=== PATIENT | male | born 1955 | race Caucasian/White ===

== ENCOUNTER 2019-12-13 15:56 | Inpatient (IN) | payer OTHER ==
[~2019-12-13] VITALS: Ht 180.3 cm; Wt 101.5 kg
[2019-12-13 18:10] LABS: BASO % 0.5 % (0.0-2.0); EOS # 0.4 (0.0-0.7); EOS % 4.7 % (0-4.0); GRAN # 5.9 (1.4-6.5); GRAN % 77.2 % (42.2-75.2); LYMPH # 0.3 (1.2-3.4); LYMPH % 3.9 % (20.0-51.0); MEAN CELL VOLUME 93 fl (80.0-100.0); MEAN CORPUSCULAR HGB CONC 33 g/dl (33.0-37.0); MEAN PLATELET VOLUME 9.5 fl (7.4-10.4); MONO % 13.2 % (1.7-9.3); PLATELET COUNT 247 K/mm3 (130-400); REDCELL DISTRIBUTION WIDTH-CV 19.2 % (11.5-14.5)
[2019-12-13 18:11] LABS: HEMATOCRIT 23.3 % (42.0-52.0); HEMOGLOBIN 7.6 g/dl (13.5-18.0); MEAN CORPUSCULAR HEMOGLOBIN 30 pg (27.0-31.0)
[2019-12-13 18:15] LABS: INR 1.3 (0.8-3.0); PROTHROMBIN TIME 14.2 SECONDS (9.7-12.8)
[2019-12-13 18:20] LABS: ALBUMIN 3.3 gm/dL (3.5-5.0); BILIRUBIN,TOTAL 0.7 mg/dL (0.0-1.0); CREATININE, serum 12.91 (0.66-1.25); POTASSIUM 4.5 mmol/L (3.4-5.0); TOTAL PROTEIN 6.4 gm/dL (6.4-8.2)
[2019-12-13 18:25] VITALS: BP 158/85; PULSE 103; TEMP 99.5
[2019-12-13 18:40] LABS: PHOSPHOROUS 10.7 mg/dL (2.5-4.5)
[2019-12-13 18:41] LABS: CALCIUM 5.2 mg/dL (8.4-10.2)
[2019-12-13 20:42] VITALS: BP 148/81; PULSE 92; TEMP 98.3
--- NOTE | 2019-12-13 21:49 | NUR ---
Radha carpenter DC'd, 10cc water removed. pt tolerated well, states relief. needs met at this time. call light within reach.
--- NOTE | 2019-12-13 22:00 | NUR ---
Received report from BRITTANY Fowler. A/O x4. Denies any pain or discomfort at this time. Garcia cather intact draining tea colored urine. Garcia will be DC'd per orders. Tele monitor in place. PT able to lift and hold BUE and BLE but seems weak. PT to call for needs. Meds adminisetered. Made pt comfortable in bed. Per Dr Ann, LA restriction for future fistula placement. Restriction band placed on LA. INT to lt shoulder and RFA intact, flushed, dressing CDI. Will monitor pt. Pt understands procedure in AM and to be be NPO at midnight. Call light within reach. Covid came back negative.
[2019-12-13 23:13] VITALS: BP 146/54; PULSE 92; TEMP 98.1
[2019-12-14] VITALS (11 sets, daily range): BP systolic 139–155; BP diastolic 62–85; PULSE 86–98; TEMP 97.4–98.9
--- NOTE | 2019-12-14 07:03 | NUR ---
Report given to BRITTANY Moon.
--- NOTE | 2019-12-14 07:30 | NUR ---
Patient is being taken down to laboratory monitor for tunneled dialysis catheter placement
--- NOTE | 2019-12-14 08:08 | NUR ---
SEE MEREGE FOR ALL MEDICATION ADMIN. TIMES AND INTRA AND POST SEDATION ASSESSMENTS
--- NOTE | 2019-12-14 08:50 | NUR ---
Patient arrived back to room 356 from oil laboratory analyst, TDC placed to right jugular/ dressing C/D/I, he is drowsy but easy to arouse, vital signs stable, US/vascular here to do veing mapping for fistula
--- NOTE | 2019-12-14 09:00 | NUR ---
Assessment completed, alert/oriented but drowsy after receiving sedation for dialysis cath placement, he is having a left arm vein mapping done now for future fistula placement, he will go do dialysis after, heart RRR, vitals signs stable, denies pain or discomfort, lungs are diminished with some expiratory wheezing noted, o2 sats stable on room air
--- NOTE | 2019-12-14 10:00 | NUR ---
Transferring patient to dialysis at this time
[2019-12-14 10:49] LABS: BASO # 0.1 (0.0-0.2); BASO % 0.9 % (0.0-2.0); EOS # 0.4 (0.0-0.7); EOS % 6.2 % (0-4.0); GRAN # 4.9 (1.4-6.5); GRAN % 76.7 % (42.2-75.2); HEMOGLOBIN 7.7 g/dl (13.5-18.0); LYMPH # 0.2 (1.2-3.4); LYMPH % 3.7 % (20.0-51.0); MEAN CELL VOLUME 94 fl (80.0-100.0); MEAN CORPUSCULAR HEMOGLOBIN 30 pg (27.0-31.0); MEAN CORPUSCULAR HGB CONC 32 g/dl (33.0-37.0); MEAN PLATELET VOLUME 9.7 fl (7.4-10.4); MONO # 0.8 (0.1-0.6); MONO % 11.9 % (1.7-9.3); PLATELET COUNT 266 K/mm3 (130-400); RED BLOOD COUNT 2.56 M/mm3 (4.20-5.60); REDCELL DISTRIBUTION WIDTH-CV 19.5 % (11.5-14.5)
[2019-12-14 11:19] LABS: IRON,SERUM 25 ug/dL (35-150)
[2019-12-14 11:22] LABS: ALBUMIN 3.1 gm/dL (3.5-5.0); POTASSIUM 4.4 mmol/L (3.4-5.0)
[2019-12-14 11:28] LABS: CREATININE, serum 14.39 (0.66-1.25)
[2019-12-14 11:41] LABS: PHOSPHOROUS 12.2 mg/dL (2.5-4.5)
[2019-12-14 11:44] LABS: CALCIUM 5.5 mg/dL (8.4-10.2)
--- NOTE | 2019-12-14 16:40 | NUR ---
Evaporative Cooler Installer met with patient to discuss discharge planning. Patient lives alone in [place] and denies having an emergency contact. Patient denies being or having any children. Patient states his parents and siblings are . Patient does not have a primary care provider but is willing to get set up with the [facility] as he used to be seen there long ago. Patient does not have a regular pharmacy. Patient uses a cane and reports he has had some difficulty getting around recently. Patient states he receives social security income. DORY followed up with Yesy Financial Counselor who reports she is working on looking up patient to see if he has Medicare. DORY spoke with PT who advised patient may need post acute rehab. DORY also spoke with Dr. Ann who advised patient will need transportation set up for dialysis three times a week. DORY will follow up on these needs.
[2019-12-14 21:08] LABS: HEPATITIS B SURFACE ANTIBODY <2.0 (()); HEPATITIS B SURFACE ANTIGEN Negative (Negative); HEPATITIS C VIRUS ANTIBODY Negative (Negative)
[2019-12-14 21:17] LABS: TRANSFERRIN 153 mg/dL (180-329)
--- NOTE | 2019-12-14 21:53 | NUR ---
Report received from BRITTANY Moon. A/Ox4. Denies any pain or discomfort at this time. Pt had large loose stool, occult collected and sent to lab. Colace held. Made pt comfortable in bed. INT to LT shoulder and RFA intact, flushed, dressing CDI. RIJ TDC intact w/o complications. Tele monitor in place. Needs met at this time. call light within reach.
[2019-12-14 22:28] LABS: TOTAL IRON BINDING CAPACITY 228 ug/dL (261-462)
[2019-12-15] VITALS (10 sets, daily range): BP systolic 119–160; BP diastolic 55–83; PULSE 76–96; TEMP 97.4–99.5
--- NOTE | 2019-12-15 04:31 | NUR ---
Pt had BB incontinent episode. Had small loose BM. Stool occult collected and sent to lab. Did complete bed change and placed brief on pt. Made pt comfortable. Needs met at this time. Pt able to assist in turning in bed. Urinal placed at bedside as requested by pt. Call light within reach.
--- NOTE | 2019-12-15 07:28 | NUR ---
Report given to BRITTANY Salazar.
--- NOTE | 2019-12-15 08:00 | NUR ---
Assessment complete. Pt sitting up in bed working with speech therapy at this time. Passed bedside swallow test with ST present, did well with pills an thin liquids. Pt denies pain or discomfort at this time. Complained of eyes burning when first woke up, warm rag/compress was provided and this relieved his symptoms. IV sites are CD&I at this time. Pt is aware of his POC for dialysis later this afternoon. No other needs were expressed at this time. Call light is in reach.
--- NOTE | 2019-12-15 09:45 | NUR ---
Pt had an episode of urine incontinence at this time, he seemed to be unaware that this had happened. Brief and naldo were saturated, these were changed. PT was in assisting and pt was able to stand with a PT person assist and side step to fix placement in bed. Pt was slightly short of breath on exertion but stated that this is normal for him. Mepilex was placed on Left hip ulcer to prevent contamination in cases of incontinence. No other needs. Pt is comfortable. Call light is in reach.
[2019-12-15 13:21] LABS: BASO # 0.1 (0.0-0.2); BASO % 0.7 % (0.0-2.0); EOS # 0.6 (0.0-0.7); EOS % 9.6 % (0-4.0); GRAN # 4.8 (1.4-6.5); GRAN % 71.7 % (42.2-75.2); LYMPH # 0.4 (1.2-3.4); LYMPH % 5.4 % (20.0-51.0); MEAN CELL VOLUME 93 fl (80.0-100.0); MEAN CORPUSCULAR HGB CONC 32 g/dl (33.0-37.0); MEAN PLATELET VOLUME 9.5 fl (7.4-10.4); MONO # 0.8 (0.1-0.6); PLATELET COUNT 309 K/mm3 (130-400); REDCELL DISTRIBUTION WIDTH-CV 19.4 % (11.5-14.5)
[2019-12-15 13:24] LABS: HEMATOCRIT 24.2 % (42.0-52.0); HEMOGLOBIN 7.8 g/dl (13.5-18.0); MEAN CORPUSCULAR HEMOGLOBIN 30 pg (27.0-31.0)
[2019-12-15 13:33] LABS: ALBUMIN 3.4 gm/dL (3.5-5.0); CALCIUM 6.5 mg/dL (8.4-10.2); CREATININE, serum 10.64 (0.66-1.25); PHOSPHOROUS 7.9 mg/dL (2.5-4.5); POTASSIUM 4.1 mmol/L (3.4-5.0)
--- NOTE | 2019-12-15 15:32 | NUR ---
Manager Library collaborated with Dr. Ann to inform him patient is not eligible for . DORY advised Yesy, Financial Counselor is following up on VA benefits and/or Medicare coverage. DORY followed up with patient who states he has VA benefits but isn't sure where a card would be. Patient states its been years since he's been seen by the VA. Patient reports he drives and this is how he gets to all his appointments. SW discussed a post acute rehab with patient and he would like a referral sent to [facility]. Patient feels he would benefit from rehab before returning home. DORY contacted Chey, [facility] Director to give referral. DORY will continue to follow.
--- NOTE | 2019-12-15 15:48 | NUR ---
pT HAS RETURNED FROM DIALYSIS. HE IS COMFORTABLE IN BED AND SLEEPING AT THIS TIME. CALL LIGHT IS IN REACH. BED ALARM IN SET. NO FURTHER NEEDS, WILL CONTINUE TO MONITOR.
--- NOTE | 2019-12-15 18:46 | NUR ---
Pt had a good day. He was up and ambulated a few feet multiple times. Went to dialysis via wheel chair not bed. Weight bearing is stable, his legs are heavy and difficult for him to move. Weakness in his arms has improved slightly. No complaints of pain or discomfort through the day. No other episodes of discomfort with his eyes.
--- NOTE | 2019-12-15 20:15 | NUR ---
Patient assessed at this time. Alert and oriented. Denies having pain and discomfort at this time. Peripheral INT to right forearm and to left shoulder area. Both sites flushed and are without redness, warmth, swelling, and pain. Dialysis catheter to right IJ. Dressing to area is CDI. Stitches above are CDI. Denies having SOB and dyspena. LS CTA in upper lobes, diminished in lower. Respirations even and unlabored. HRR. Telemetry in place: normal sinus. Capillary refill less than 3 seconds. Non-tenting skin turgor. BSAx4. Abdomen soft and non-tender. Patient has 2+ edema to RUE, 1+ to LUE, and 2+ to BLE. Mepilex to ulcer on left hip is CDI. Decreased movement all extremeties. Voices no questions, needs, or concerns at this time. Resting in bed with call light within reach.
[2019-12-16] VITALS: BP 120/66; PULSE 88; TEMP 98.2
[2019-12-16 04:00] VITALS: BP 107/56; PULSE 84; TEMP 97.8
--- NOTE | 2019-12-16 05:38 | NUR ---
Patient has been resting in bed with call light within reach. Has denied having pain and discomfort this shift.
--- NOTE | 2019-12-16 07:50 | NUR ---
Pt asleep upon entry, easily awakened, prepared Pt to move to dailysis this AM, cleaned Pt and changed bedding, performed shift assessments, moved Pt to dailysis.
[2019-12-16 09:14] LABS: BASO % 0.8 % (0.0-2.0); EOS # 0.8 (0.0-0.7); EOS % 15.6 % (0-4.0); GRAN # 2.8 (1.4-6.5); LYMPH # 0.6 (1.2-3.4); LYMPH % 11.5 % (20.0-51.0); MEAN CELL VOLUME 95 fl (80.0-100.0); MEAN CORPUSCULAR HGB CONC 31 g/dl (33.0-37.0); MEAN PLATELET VOLUME 9.5 fl (7.4-10.4); MONO # 0.7 (0.1-0.6); MONO % 13.5 % (1.7-9.3); PLATELET COUNT 288 K/mm3 (130-400); RED BLOOD COUNT 2.56 M/mm3 (4.20-5.60); REDCELL DISTRIBUTION WIDTH-CV 18.8 % (11.5-14.5)
[2019-12-16 09:19] LABS: ALBUMIN 3.1 gm/dL (3.5-5.0); CALCIUM 7.2 mg/dL (8.4-10.2); CREATININE, serum 6.06 (0.66-1.25); PHOSPHOROUS 6.2 mg/dL (2.5-4.5)
[2019-12-16 09:24] LABS: HEMATOCRIT 24.3 % (42.0-52.0); HEMOGLOBIN 7.6 g/dl (13.5-18.0); MEAN CORPUSCULAR HEMOGLOBIN 30 pg (27.0-31.0)
--- NOTE | 2019-12-16 16:06 | NUR ---
Animal Care Giver spoke with patient about additional referrals for post acute rehab. Patient is agreeable to have referrals sent to [facility], [facility], [facility], and [facility]. Patient has [facility] [employer] [facility]. SW attempted to contact [place] but they are closed for the holiday. SW contacted Sims at [facility], Abdulkadir at [facility], and Jorje at [facility] then faxed referrals. SW contacted [facility] and faxed referral. SW will continue to follow.
[2019-12-16 16:52] VITALS: BP 144/63; PULSE 91; TEMP 97.7
--- NOTE | 2019-12-16 19:08 | NUR ---
Pt rested in the room today, no C/O pain throughout the day, Pt had dialysis this morning, and napped after, Pt had no other complaints. VS have remained stable.
--- NOTE | 2019-12-16 19:40 | NUR ---
Patient assessed at this time. Alert and oriented, and able to make needs known. Denies having pain and discomfort at this time. Peripheral INT to right forearm and left shoulder area flushed. Sites are both without redness, warmth, swelling, and pain. Right IJ tunneled dialysis catheter. Stitches to area CDI. Dressing CDI. Denies pain and discomfort to area. Denies having SOB and dyspnea. LS CTA. Respirations even and unlabored. HRR. Telemetry in place: sinus. Capillary refill less than 3 seconds. Non-tenting skin turgor. BSAx4. Abdomen soft and non-tender. Patient incontinent of bowel and bladder. Assisted to bedside commode with two assist with use of gait belt. Hemoccult sample obtained and sent to lab. Perineal hygiene care provided. Assisted back to bed and repositioned off of back. Mepilex to ulcer on left hip/buttock area CDI. Generalized edema, non-pitting. High fall risk precautions in place. Bed alarm is on. Voices no questions, needs, or concerns at this time. Resting in bed with call light within reach.
[2019-12-16 20:04] VITALS: BP 121/60; PULSE 91; TEMP 98.6
[2019-12-16 23:08] VITALS: BP 116/47; PULSE 85; TEMP 97.9
[2019-12-17 03:15] VITALS: BP 150/72; PULSE 92; TEMP 97.6
--- NOTE | 2019-12-17 05:11 | NUR ---
Patient has been resting in bed with call light within reach. Has denied having pain and discomfort. Voices no questions, needs, or concerns at this time.
[2019-12-17 07:25] VITALS: BP 144/74; PULSE 85; TEMP 98.6
--- NOTE | 2019-12-17 09:41 | NUR ---
PT SITTING IN CHAIR, JUST FINISHED BREAKFAST. DENIES PAIN AND DISCOMFORT AT THIS TIME. CALL LIGHT WITHIN REACH.
[2019-12-17 12:00] VITALS: BP 129/70; PULSE 90; TEMP 98
[2019-12-17 16:58] VITALS: BP 131/61; PULSE 85; TEMP 97.7
--- NOTE | 2019-12-17 18:50 | NUR ---
NO ISSUES THIS SHIFT. PT RESTED WELL AND HAD CALL LIGHT WITHIN REACH.
[2019-12-17 18:55] VITALS: BP 141/76; PULSE 88; TEMP 98.4
--- NOTE | 2019-12-17 20:30 | NUR ---
Initial shift assessment done- denies pain tonight- requesting a Pepsi, no other requests, states he is feeling pretty good tonight. Generalized edema- Tele on, SCD,s on, voided 200cc yolanda urine per urinal
[2019-12-17 23:14] VITALS: BP 134/72; PULSE 84; TEMP 97.8
[2019-12-18 03:19] VITALS: BP 159/70; PULSE 81; TEMP 97.6
--- NOTE | 2019-12-18 05:57 | NUR ---
Quiet night- no requests, denies pain
[2019-12-18 07:24] LABS: MEAN CELL VOLUME 97 fl (80.0-100.0); MEAN CORPUSCULAR HGB CONC 31 g/dl (33.0-37.0); MEAN PLATELET VOLUME 9.4 fl (7.4-10.4); PLATELET COUNT 275 K/mm3 (130-400); REDCELL DISTRIBUTION WIDTH-CV 17.5 % (11.5-14.5)
[2019-12-18 07:42] LABS: HEMATOCRIT 25.1 % (42.0-52.0); HEMOGLOBIN 7.7 g/dl (13.5-18.0); MEAN CORPUSCULAR HEMOGLOBIN 30 pg (27.0-31.0)
[2019-12-18 07:44] LABS: ALBUMIN 3.1 gm/dL (3.5-5.0); CALCIUM 8.7 mg/dL (8.4-10.2); CREATININE, serum 3.31 (0.66-1.25); PHOSPHOROUS 5.9 mg/dL (2.5-4.5); POTASSIUM 3.6 mmol/L (3.4-5.0)
[2019-12-18 08:18] LABS: ANISOCYTOSIS 2+; NEUTROPHILS 67 % (42.0-75.2); PLATELET ESTIMATE NORMAL (NORMAL)
[2019-12-18 09:44] LABS: BAND 4 % (0-10); LYMPHOCYTE 24 % (20.0-51.0)
[2019-12-18 10:09] VITALS: BP 127/59; PULSE 88; TEMP 36.6
[2019-12-18 13:06] VITALS: BP 135/72; PULSE 87; TEMP 98.1
[2019-12-18 16:56] VITALS: BP 144/63; PULSE 92; TEMP 98.2
--- NOTE | 2019-12-18 19:45 | NUR ---
Patient assessed at this time. Alert and oriented x 4, but does not always make needs known. Denies having pain and discomfort at this time. Peripheral INT to left shoulder area flushed. Site is without redness, warmth, swelling, and pain. Tunneled dialysis catheter to right chest area. Dressing CDI. Denies having SOB and dyspnea. LS CTA. Respirations are even and unlabored. HRR. Capillary refill less than 3 seconds. Non-tenting skin turgor. BSAx4. Abdomen soft and non-tender. Non-pitting edema to BUE. No edema to BLE. Using bedside urinal. Urine is clear and yellow. Mepilex to left hip/buttock area is CDI. Scab to left knee open to air. Voices no questions, needs, or concerns at this time. Resting in bed with call light within reach. High fall risk precautions remain in place, with bed alarm on.
[2019-12-18 20:20] VITALS: BP 147/75; PULSE 86; TEMP 98.2
[2019-12-19] VITALS (9 sets, daily range): BP systolic 112–140; BP diastolic 52–79; PULSE 83–93; TEMP 97.7–98.6
--- NOTE | 2019-12-19 05:54 | NUR ---
Patient has been resting in bed with call light within reach. Has denied having pain and discomfort. Has been using bedside urinal. High fall risk precautions remain in place at this time. Bed alarm is on.
[2019-12-19 07:48] LABS: MEAN CELL VOLUME 96 fl (80.0-100.0); MEAN CORPUSCULAR HGB CONC 31 g/dl (33.0-37.0); MEAN PLATELET VOLUME 9.3 fl (7.4-10.4); PLATELET COUNT 239 K/mm3 (130-400); RED BLOOD COUNT 2.52 M/mm3 (4.20-5.60); REDCELL DISTRIBUTION WIDTH-CV 17.1 % (11.5-14.5)
[2019-12-19 08:07] LABS: ALBUMIN 2.9 gm/dL (3.5-5.0); CALCIUM 8.6 mg/dL (8.4-10.2); CREATININE, serum 2.94 (0.66-1.25); HEMATOCRIT 24.1 % (42.0-52.0); HEMOGLOBIN 7.5 g/dl (13.5-18.0); MEAN CORPUSCULAR HEMOGLOBIN 30 pg (27.0-31.0); PHOSPHOROUS 6.1 mg/dL (2.5-4.5); POTASSIUM 3.5 mmol/L (3.4-5.0)
[2019-12-19 10:37] LABS: EOSINOPHIL 16 % (0-4); LYMPHOCYTE 22 % (20.0-51.0); NEUTROPHILS 59 % (42.0-75.2); PLATELET ESTIMATE NORMAL (NORMAL)
[2019-12-19 10:38] LABS: ANISOCYTOSIS 2+
[2019-12-19 10:40] LABS: POLYCHROMASIA 2+
--- NOTE | 2019-12-19 12:20 | NUR ---
Pt awake and alert, just returned to floor from dialysis, shift assessments complete, left Pt call light in reach, bed in lowest position.
--- NOTE | 2019-12-19 14:18 | NUR ---
Chey, IPR Director, reports that the patient does not have any coverage; due to not being established with a PCP. DORY then contacted the [facility]. The concierge receptionist reports that the patient has not been seen at the [place] since 2011 and that he would need to contact Eligibility to be able to get re-established with care through them. DORY's then met with the patient to inform and assisted the patient with contacting eligibility. Thao with eligibility took the patient's information and then transferred the call back to the [facility] to get an appointment set up there. Yeimy, at the [facility], reports that they would not be able to set a slra-ik-lriv appointment for him until . DORY also informed Yeimy about the team's recommendation for post-acute rehab. Yeimy referred and transferred SW to the [facility]'s rn social work, Anju. DORY left Anju a voicemail. SW to continue to follow.
--- NOTE | 2019-12-19 16:09 | NUR ---
Abdulkadir, at [facility], reports that they are out of network with the patient's [facility].
--- NOTE | 2019-12-19 19:53 | NUR ---
Pt rested in the room after returning from dialysis late this morning, reported 800ml fluid removed from Pt. Pt had no C/O pain during the shift. one unit of LRPRBC transfused this afternoon. VS have remained stable.
[2019-12-19 20:26] LABS: MEAN CELL VOLUME 97 fl (80.0-100.0); MEAN CORPUSCULAR HGB CONC 30 g/dl (33.0-37.0); MEAN PLATELET VOLUME 9.1 fl (7.4-10.4); PLATELET COUNT 219 K/mm3 (130-400); RED BLOOD COUNT 2.88 M/mm3 (4.20-5.60); REDCELL DISTRIBUTION WIDTH-CV 17.1 % (11.5-14.5)
[2019-12-19 20:27] LABS: HEMATOCRIT 27.9 % (42.0-52.0); HEMOGLOBIN 8.4 g/dl (13.5-18.0); MEAN CORPUSCULAR HEMOGLOBIN 29 pg (27.0-31.0)
[2019-12-19 21:18] LABS: ANISOCYTOSIS 1+; EOSINOPHIL 12 % (0-4); HYPOCHROMIA 1+; LYMPHOCYTE 15 % (20.0-51.0); NEUTROPHILS 68 % (42.0-75.2)
--- NOTE | 2019-12-19 23:43 | NUR ---
Pt assessment completed and charted, alert, oriented, roomair. Meds provided as per MAR, tolerated well. No N/V/D, tingling, numbness, SOB, pain as per pt. Blood transfusion completed at around 1936, post transfusion vitals recorded, pt tolerted well. Helped pt to settled down on his bed, call light on reach. No further needs at this time.
[2019-12-20] VITALS (14 sets, daily range): BP systolic 80–138; BP diastolic 52–77; PULSE 73–92; TEMP 97.8–99.5
--- NOTE | 2019-12-20 05:33 | NUR ---
Pt slept through out the night, no further needs at this time,
--- NOTE | 2019-12-20 10:31 | NUR ---
Assessment completed, alert/oriented, vital signs stable, denies pain or discomfort, stated " he is feeling much better", heart RRR, lungs CTA/ no reps.difficulty, peripheral edema is much improved, he is scheduled for Fistula placement this afternoon/ he is NPO and consent is signed, he denies other needs at this time
[2019-12-20 12:00] LABS: BASO # 0.1 (0.0-0.2); BASO % 0.6 % (0.0-2.0); EOS # 0.8 (0.0-0.7); EOS % 10.1 % (0-4.0); GRAN # 4.6 (1.4-6.5); GRAN % 58.3 % (42.2-75.2); LYMPH # 1.8 (1.2-3.4); LYMPH % 23.3 % (20.0-51.0); MEAN CELL VOLUME 96 fl (80.0-100.0); MEAN CORPUSCULAR HGB CONC 31 g/dl (33.0-37.0); MEAN PLATELET VOLUME 9.1 fl (7.4-10.4); MONO # 0.6 (0.1-0.6); MONO % 7.2 % (1.7-9.3); PLATELET COUNT 224 K/mm3 (130-400); REDCELL DISTRIBUTION WIDTH-CV 17.4 % (11.5-14.5)
[2019-12-20 12:06] LABS: HEMATOCRIT 29.7 % (42.0-52.0); HEMOGLOBIN 9.2 g/dl (13.5-18.0); MEAN CORPUSCULAR HEMOGLOBIN 30 pg (27.0-31.0)
--- NOTE | 2019-12-20 12:07 | NUR ---
First visit from the paper steamer. No needs right now.
[2019-12-20 12:10] LABS: ALBUMIN 3.7 gm/dL (3.5-5.0); CALCIUM 9.3 mg/dL (8.4-10.2); CREATININE, serum 2.11 (0.66-1.25); PHOSPHOROUS 4.6 mg/dL (2.5-4.5)
[2019-12-20 12:24] LABS: POTASSIUM 4.2 mmol/L (3.4-5.0)
--- NOTE | 2019-12-20 14:45 | NUR ---
Patient going down to surgery for Fistula placmeent
--- NOTE | 2019-12-20 16:10 | NUR ---
DORY attempted to contact the [facility] to speak to the social professionals and to also set up an appointment to re-establish care. There was no answer and DORY had to leave a voicemail. DORY then contacted Leeann at the [facility]. Leeann reports that it will be difficult to get in touch with the [facility], but that she could forward SW to scheduling at the [facility]. DORY remained on hold, with no answer. DORY faxed updates to [facility], [facility], and [facility]. Angie, at [facility], reports that the patient's benefits are in network with them and that they are still working through some things. Magdaleno, at [facility], reports that they have still not heard back from the [facility]. Marlene, at [facility], reports that she has not spoken to the VA yet, but could come and screen the patient tomorrow. SW to inform the patient.
--- NOTE | 2019-12-20 16:15 | NUR ---
patient arrived back to room 356 from PACU, drowsy but arousalbe, VS stable, denies pain, will continue to monitor
--- NOTE | 2019-12-20 16:41 | NUR ---
Gretchen, at the [facility], contacted SW to inform that their SW and eligibility is out for the day; but she will have them contact SW first thing in the morning to follow up about establishing care. SW to continue to follow.
--- NOTE | 2019-12-20 18:19 | NUR ---
Patient doing well post-op, alert/oriented, vital signs stable, sitting up in bed eating /drinking, denies needs at thistime
--- NOTE | 2019-12-21 00:43 | NUR ---
Pt assessment completed, charted, alert, oriented, roomair. Meds provided as per MAR, tolerated well. I/V flushed without complications. No N/V/D, numbness, tingling, SOB, pain as per pt. Walked with this nurse on hallway for about 10 minutes, tolerated well. Helped him settled down on bed, call light on reach. No further needs at this time.
[2019-12-21 04:18] VITALS: BP 126/65; PULSE 86; TEMP 97.8
--- NOTE | 2019-12-21 06:34 | NUR ---
Pt had an uneventful night, slept on and off through out the night. No further needs at this time.
--- NOTE | 2019-12-21 08:18 | NUR ---
Assessment completed, alert/oriented, vital signs stable, report some arthritic left ankle pain/ requested Tylenol, heart RRR, lungs CTA/ no resp.difficulty noted, he has been up ambulating halls with PT this morning and is getting around very well with a wheeled walker, he is refusing breakfast at this time and he is going to dialysis at this time, denies other needs
[2019-12-21 09:32] LABS: BASO % 0.4 % (0.0-2.0); EOS # 0.7 (0.0-0.7); EOS % 9.7 % (0-4.0); LYMPH # 1.7 (1.2-3.4); LYMPH % 23.9 % (20.0-51.0); MEAN CELL VOLUME 95 fl (80.0-100.0); MEAN CORPUSCULAR HGB CONC 31 g/dl (33.0-37.0); MEAN PLATELET VOLUME 9.7 fl (7.4-10.4); MONO # 0.5 (0.1-0.6); MONO % 7.6 % (1.7-9.3); PLATELET COUNT 204 K/mm3 (130-400); RED BLOOD COUNT 2.67 M/mm3 (4.20-5.60); REDCELL DISTRIBUTION WIDTH-CV 17.1 % (11.5-14.5)
[2019-12-21 09:41] LABS: HEMATOCRIT 25.3 % (42.0-52.0); HEMOGLOBIN 7.8 g/dl (13.5-18.0); MEAN CORPUSCULAR HEMOGLOBIN 29 pg (27.0-31.0)
[2019-12-21 10:59] LABS: ALBUMIN 3.1 gm/dL (3.5-5.0); CALCIUM 8.1 mg/dL (8.4-10.2); CREATININE, serum 2.3 (0.66-1.25); PHOSPHOROUS 5.2 mg/dL (2.5-4.5)
[2019-12-21 12:06] VITALS: BP 151/90; PULSE 88; TEMP 98.4
--- NOTE | 2019-12-21 14:58 | NUR ---
Marlene and Blas, at [facility], came and screened the patient. Marlene then contacted DORY to inform that the VA would not cover a stay there since he is not established with a provider. Anju, social work therapist, at the [facility] then contacted DORY and reports that the patient would need to complete a Health Benefits Update Form to verify eligibility. She states that once this is completed, then they can move forward in requesting an acute transfer or to establish care. She states that they would not be able to approve post-acute rehab for the patient from the hospital, due to him not being established with care yet. Anju emailed DORY the forms. DORY met with the patient and assisted him with completing the forms. DORY emailed and faxed the completed and signed forms back to Anju at the [place]. DORY attempted to contact Anju to inform of the forms being emailed and faxed back to her. DORY left her a voicemail. DORY updated Dr. Ann of the above information. DORY to continue to follow.
--- NOTE | 2019-12-21 16:05 | NUR ---
Anju, criminal justice social worker at the [facility], returned DORY's phone call and reports that she has sent the completed forms to eligibility and they are good to go. She states that the fastest way for the patient to get established with care again is an acute transfer to the [facility], otherwise the patient would not be able to be seen until February. [facility]#[phone] is the number to call to facilitate transfer. DORY updated the patient and Dr. Ann. The patient and Dr. Ann are agreeable to the above plan. DORY contacted the [facility]. The office coordinator receptionist took DORY's name and phone number and reports that she will contact DORY back. DORY to continue to follow.
[2019-12-21 16:13] VITALS: BP 126/71; PULSE 91; TEMP 98.2
[2019-12-21 19:50] VITALS: BP 139/75; PULSE 89; TEMP 99
[2019-12-21 23:06] VITALS: BP 118/66; PULSE 85; TEMP 98
[2019-12-22 03:23] VITALS: BP 124/70; PULSE 85; TEMP 97.6
[2019-12-22 06:57] LABS: BASO % 0.5 % (0.0-2.0); EOS # 0.6 (0.0-0.7); EOS % 9.8 % (0-4.0); GRAN % 51.3 % (42.2-75.2); LYMPH # 1.7 (1.2-3.4); LYMPH % 28.1 % (20.0-51.0); MEAN CELL VOLUME 94 fl (80.0-100.0); MEAN CORPUSCULAR HGB CONC 32 g/dl (33.0-37.0); MEAN PLATELET VOLUME 9.6 fl (7.4-10.4); MONO # 0.6 (0.1-0.6); MONO % 9.8 % (1.7-9.3); PLATELET COUNT 192 K/mm3 (130-400); RED BLOOD COUNT 2.63 M/mm3 (4.20-5.60); REDCELL DISTRIBUTION WIDTH-CV 16.9 % (11.5-14.5)
[2019-12-22 07:04] LABS: HEMATOCRIT 24.8 % (42.0-52.0); HEMOGLOBIN 7.9 g/dl (13.5-18.0); MEAN CORPUSCULAR HEMOGLOBIN 30 pg (27.0-31.0)
[2019-12-22 07:08] LABS: ALBUMIN 3.1 gm/dL (3.5-5.0); CREATININE, serum 1.63 (0.66-1.25); PHOSPHOROUS 4.6 mg/dL (2.5-4.5); POTASSIUM 4.1 mmol/L (3.4-5.0)
[2019-12-22 07:52] VITALS: BP 117/72; PULSE 91; TEMP 97.9
--- NOTE | 2019-12-22 08:02 | NUR ---
PT AOX4. STATES MILD ARTHRITIC PAIN TO FEET. STEADY INDEPENDENT AMBULATION. UP AD SAMMY. CLEARED BY PT THIS AM. LT WRIST FISTULA CDI PROJECT GEOLOGIST WITH THRILL AND BRUIT PRESENT. DENIES CP, FARRIS, N/V, VERTIGO.
--- NOTE | 2019-12-22 09:07 | NUR ---
SW attempted to contact the [facility] transfer nurse. SW left a voicemail.
--- NOTE | 2019-12-22 11:24 | NUR ---
Anju, social worker assistant at the [facility], contacted DORY to provide the transfer RN's (Chelsie) phone number and fax number. DORY contacted and faxed the patient's records to Chelsie at the [facility]. Chelsie reports that she has a meeting at 1130 and will then contact DORY back. Chelsie: #[phone] fax#[phone],
[2019-12-22 12:32] VITALS: BP 128/72; PULSE 86; TEMP 98.5
[2019-12-22 16:15] VITALS: BP 115/60; PULSE 89; TEMP 98.7
--- NOTE | 2019-12-22 16:41 | NUR ---
Chelsie, transfer RN, reports that their doctor is declining the patient; due to the patient just needing outpatient services. Kimberly reports that their dialysis social worker will be getting in contact with SW to assist with getting outpatient services set up. SW to continue to follow.
[2019-12-22 19:57] VITALS: BP 124/72; PULSE 87; TEMP 98.3
--- NOTE | 2019-12-22 20:50 | NUR ---
Resting in bed. Assessment complete. Lungs clear. Heart sounds normal. Bowels active x4. Bilateral lower extremity edema +1. Left forearm incision CDI open to air. Bruit and thrill present. Right chest dialysis access without complications. INT left shoulder present and flushed at this time. Denies pain. Denies needs at this time. Call light in reach.
--- NOTE | 2019-12-23 00:40 | NUR ---
Resting in bed. Denies needs. Call light in reach.
[2019-12-23 01:16] VITALS: BP 136/71; PULSE 82; TEMP 97.8
--- NOTE | 2019-12-23 02:15 | NUR ---
Resting in bed asleep. Call light in reach.
[2019-12-23 04:33] VITALS: BP 126/69; PULSE 85; TEMP 98.3
--- NOTE | 2019-12-23 04:33 | NUR ---
Resting in bed. Denies needs. Call light in reach.
--- NOTE | 2019-12-23 06:01 | NUR ---
Patient uneventful night. Resting in bed this AM. Call light in reach.
--- NOTE | 2019-12-23 07:08 | NUR ---
Report given to BRITTANY Luevano
[2019-12-23 07:51] VITALS: BP 119/73; PULSE 94; TEMP 98.3
[2019-12-23 09:13] LABS: BASO # 0.1 (0.0-0.2); BASO % 0.9 % (0.0-2.0); EOS # 0.5 (0.0-0.7); EOS % 9.2 % (0-4.0); GRAN # 3.1 (1.4-6.5); GRAN % 52.5 % (42.2-75.2); LYMPH # 1.6 (1.2-3.4); LYMPH % 26.8 % (20.0-51.0); MEAN CELL VOLUME 95 fl (80.0-100.0); MEAN CORPUSCULAR HGB CONC 30 g/dl (33.0-37.0); MEAN PLATELET VOLUME 9.7 fl (7.4-10.4); MONO # 0.6 (0.1-0.6); MONO % 10.3 % (1.7-9.3); PLATELET COUNT 236 K/mm3 (130-400); RED BLOOD COUNT 2.78 M/mm3 (4.20-5.60)
[2019-12-23 09:15] LABS: HEMATOCRIT 26.4 % (42.0-52.0); MEAN CORPUSCULAR HEMOGLOBIN 29 pg (27.0-31.0)
[2019-12-23 09:25] LABS: ALBUMIN 3.4 gm/dL (3.5-5.0); CALCIUM 8.3 mg/dL (8.4-10.2); CREATININE, serum 1.72 (0.66-1.25); PHOSPHOROUS 5.7 mg/dL (2.5-4.5); POTASSIUM 3.8 mmol/L (3.4-5.0)
--- NOTE | 2019-12-23 10:31 | NUR ---
Patient is alert and oriented. denies pain. In dialysis at the moment.
[2019-12-23 12:26] VITALS: BP 106/63; PULSE 99; TEMP 98.2
--- NOTE | 2019-12-23 13:12 | NUR ---
Kandace, Dialysis Nurse reported that 300mL fluid was taken out during dialysis.
--- NOTE | 2019-12-23 13:18 | NUR ---
Tried to reach Dr. Ann concerning pt's discharge. Pt [facility] not been [facility] transfer from [facility]. Instructed Dr. Ann that pt was high funtioning walking back to the floor post dialysis, sat's in 90's on RA. Left a message for discharge today if possible. Waiting for response. Informed Mary Alice CONNORS of call as well.
--- NOTE | 2019-12-23 15:53 | NUR ---
Anju, social research assistant with the [place], contacted DORY to confirm that the [facility] is declining him and that she has emailed DORY follow up appointments for the patient to re-establish care. The patient has a DrWellington De Anda on 01/11 at 3:00 PM at the [facility], Red Team 8. The [facility] scheduled him a lab draw-fasting on 01/08 at 10:30 AM at the [facility]. The patient is now walking 700 ft and ambulating on his own in the halls. DORY met with the patient and he reports that he feels comfortable returning home. DORY updated the patient's attending, Dr. Ann, of the above information. Dr. Ann reports that the patient is not safe to return home. Financial Counselor, Yesy, contacted and completed a Medicaid application with the patient. DORY met with the patient and presented the Release of Information forms for the Medicaid application. The patient signed forms. DORY emailed the signed forms back to Financial Counseling. DORY has attempted to call and email Anju to inquire about dialysis after he discharges. DORY has not received a response back. DORY to continue to follow.
--- NOTE | 2019-12-23 16:42 | NUR ---
Jacqueline, dialysis social worker with the [facility], contacted DORY and reports that the VA will not approve dialysis for the patient until his first appointment with them. She states that they have reached out to the dialysis social worker at the [facility]. to notify Dr. Ann and will continue to follow.
[2019-12-23 17:51] VITALS: BP 121/66; PULSE 98; TEMP 98.3
--- NOTE | 2019-12-23 19:12 | NUR ---
Report given to Crystal RN.
[2019-12-23 20:00] VITALS: BP 127/67; PULSE 95; TEMP 98.7
--- NOTE | 2019-12-23 22:51 | NUR ---
Pt assessment completed and charted, alert, oriented, roomair, independednt. Helped pt to change brief. Meds provided as per MAR, tolerated well. No N/V/D, tingling, numbness, SOB, pain as per pt. I/V flushed without complications. Helped pt to settled down on bed, call light on reach. No further needs at this time.
[2019-12-24] VITALS: BP 126/71; PULSE 89; TEMP 98.8
--- NOTE | 2019-12-24 02:04 | NUR ---
Resting in bed asleep. Call light in reach.
[2019-12-24 03:45] VITALS: BP 129/79; PULSE 89; TEMP 98.1
--- NOTE | 2019-12-24 05:45 | NUR ---
Pt had an uneventful night, slept on and off through out the night. No further needs at this time.
--- NOTE | 2019-12-24 06:56 | NUR ---
Given handover to BRITTANY Garcia.
[2019-12-24 07:24] VITALS: BP 127/67; PULSE 85; TEMP 97.7
--- NOTE | 2019-12-24 08:27 | NUR ---
Patient resting in bed. A&Ox3. Reporting discomfort in shoulders and legs, did not request pain medication. VSS. IV CDI. Dialysis catheter RT chest CDI. LUE restricted Fistula. Patient walked to chair independently and tolerated well. No further needs expressed from patient. Call light within reach
--- NOTE | 2019-12-24 10:46 | NUR ---
Patient walking in [place] independently and tolerating well
[2019-12-24 11:12] VITALS: BP 126/57; PULSE 95; TEMP 98
[2019-12-24 15:15] VITALS: BP 131/71; PULSE 100; TEMP 98.4
--- NOTE | 2019-12-24 17:31 | NUR ---
Patient had a great day, has been walking the 3rd floor several times this shift without difficulty. Found out that he may leave after dialysis on thursday. Denies pain and discomfort. VSS. IV CDI. Dialysis catheter CDI. No further needs expressed from patient. Call light within reach
[2019-12-24 19:31] VITALS: BP 132/72; PULSE 100; TEMP 98.4
--- NOTE | 2019-12-24 20:07 | NUR ---
Resting in bed. Assessment complete. Lungs clear. Heart sounds normal. Bowels active x4. Pulses present throughout. Bilateral lower extremity edema +1. Denies pain. INT left shoulder flushed without complications. Left forearm fistula bruit and thrill present. Right IJ dialysis cath without complications. Denies needs at this time. Call light in reach.
--- NOTE | 2019-12-24 21:45 | NUR ---
Resting in bed asleep. Call light in reach.
[2019-12-25] VITALS (7 sets, daily range): BP systolic 116–147; BP diastolic 66–74; PULSE 88–108; TEMP 97.5–98.8
--- NOTE | 2019-12-25 00:09 | NUR ---
Reports 2/10 left shoulder pain from "sleeping wrong." Provided with PRN tylenol. Denies other needs. Call light in reach.
--- NOTE | 2019-12-25 02:10 | NUR ---
Resting in bed asleep. Call light in reach.
--- NOTE | 2019-12-25 04:03 | NUR ---
Resting in bed. Call light in reach.
--- NOTE | 2019-12-25 07:20 | NUR ---
Patient had uneventful night. Resting in bed this Am. Report given to BRITTANY Garcia
--- NOTE | 2019-12-25 08:30 | NUR ---
Patient sitting up in the recliner in the dark. A&Ox3. Reporting that he feels tired and his body hurts, r/t increased walking in the halls yesterday. No pain medication requested. VSS. IV CDI. RT dialysis catheter CDI. FIstula site left forearm edges well approximated. Thrill and bruit present. No further needs expressed from the patient. Call light within reach
--- NOTE | 2019-12-25 13:48 | NUR ---
Ever received a call from patients nurse(monica) about resources through the [facility] for patient. Nurse indicated that patient lives alone and was inquiring about possible resources, and supports. [facility] printed off [facility]. Ever will leave sheet for weekday SW to follow up. Ever followed up with patients nurse.
--- NOTE | 2019-12-25 14:15 | NUR ---
SW was contacted by nurse Tova and asked if we could provide patient with some community resources due to the patient potentially going home tomorrow 12/26/19 after dialysis. SW provided patient with community resources in his area and informed him that if he had any further questions, comments or concerns to contact the SW at any time. Patient reviewed and accepted community resources. SW to continue to follow.
--- NOTE | 2019-12-25 17:38 | NUR ---
Patient had a great day. Did not walk in the hallway as much as yesterday r/t increased fatigue and discomfort from walking yesterday. Did not request pain medication. VSS. IV CDI. Dialysis catheter RT chest CDI. Fistula site LUE edges well approximated, thrill and bruit present. No further needs expressed from patient. Call light within reach
--- NOTE | 2019-12-25 20:30 | NUR ---
Pt assessment completed and documented. Pt resting in bed at this time watching television. Pt alert and oriented x4. Complaints of 3/10 aching pain to his right pointer finger. PRN tylenol given given per orders along with a hot pack per pt request for his right pointer finger. Right IJ dialysis cath without complications. Fistual to left forearm CDI with palpable thrill and audible bruit. INT CDI. Pt denies any other needs at this time. Call light within reach. Will conitnue to monitor.
--- NOTE | 2019-12-26 02:34 | NUR ---
Pt resting in bed with eyes closed. No s/s of pain seen. Call light within reach.
[2019-12-26 03:25] VITALS: BP 109/43; PULSE 96; TEMP 98.2
--- NOTE | 2019-12-26 05:08 | NUR ---
Pt had uneventful shift. Pt rested well in bed overnight. Complaints of pain to right pointer finger during the night. PRN tylenol given per orders and a few hot packs per pt request. Fistula to left forearm without any complications. Pt denies any other needs. Call light within reach.
[2019-12-26 07:15] VITALS: BP 130/67; BP 90/46; PULSE 94; TEMP 97.5
--- NOTE | 2019-12-26 07:50 | NUR ---
PT IN ROOM UP WALKING, STEADY GAIT, PT AOX4, PLEASANT, ASSESSMENT PERFORMED, MEDICATIONS GIVEN, BED IN LOW POSITION, PT REFUSED COLACE AND PHOSLO. SAID HE WOULD TAKE PHOSLO WHEN HE ATE AFTER DIALYSIS. NO OTHER NEEDS AT THIS TIME.
--- NOTE | 2019-12-26 08:15 | NUR ---
PT ESCORTED TO DIALYSIS WITH CHART.
[2019-12-26 08:56] LABS: BASO # 0.1 (0.0-0.2); BASO % 0.8 % (0.0-2.0); EOS # 0.4 (0.0-0.7); EOS % 6.3 % (0-4.0); GRAN # 3.4 (1.4-6.5); GRAN % 53.8 % (42.2-75.2); LYMPH # 1.6 (1.2-3.4); LYMPH % 25.2 % (20.0-51.0); MEAN CELL VOLUME 93 fl (80.0-100.0); MEAN CORPUSCULAR HGB CONC 31 g/dl (33.0-37.0); MEAN PLATELET VOLUME 10.2 fl (7.4-10.4); MONO # 0.9 (0.1-0.6); MONO % 13.4 % (1.7-9.3); PLATELET COUNT 257 K/mm3 (130-400); RED BLOOD COUNT 2.87 M/mm3 (4.20-5.60); REDCELL DISTRIBUTION WIDTH-CV 16.4 % (11.5-14.5)
[2019-12-26 09:00] LABS: HEMATOCRIT 26.8 % (42.0-52.0); HEMOGLOBIN 8.3 g/dl (13.5-18.0); MEAN CORPUSCULAR HEMOGLOBIN 29 pg (27.0-31.0)
[2019-12-26 09:03] LABS: ALBUMIN 3.7 gm/dL (3.5-5.0); CALCIUM 9.1 mg/dL (8.4-10.2); CREATININE, serum 1.53 (0.66-1.25); PHOSPHOROUS 5.6 mg/dL (2.5-4.5); POTASSIUM 3.9 mmol/L (3.4-5.0)
--- NOTE | 2019-12-26 12:00 | NUR ---
PT ARRIVED BACK FROM DIALYSIS.
--- NOTE | 2019-12-26 12:21 | NUR ---
PT REPORTING PAIN IN NECK FROM SITTING FOR 3 HOURS AND THEN SOME ARTHRITIC PAIN IN HIS FINGER. TYLENOL GIVEN AND WARM PACK CREATED FOR FINGER.
--- NOTE | 2019-12-26 14:30 | NUR ---
DORY provided the unit support representative with the patient's appointments at the [facility]. DORY followed up with the patient to review discharge plan. The patient reports that he is ready to get home. He had no other questions or concerns for DORY. DORY to continue to follow.
[2019-12-26 15:14] VITALS: BP 119/76; PULSE 118; TEMP 97.6
--- NOTE | 2019-12-26 15:31 | NUR ---
PT REPORTING SOME PAIN IN NECK AND ARTHRITIC FINGER. TOLD HIM TO NOTIFY ME IF HE WOULD WANT TYLENOL.
--- NOTE | 2019-12-26 16:13 | NUR ---
The patient is to tentatively discharge back home today, 12/25. SW followed up with the patient about transportation. The patient reports that he plans to take a taxi back home and that he is able to afford the taxi. No additional needs at this time.
[2019-12-26] MEDS ORDERED: PHOSLO667 MG PO (16:32)
[2019-12-26] MEDS ORDERED: B-121000 MCG PO (16:32)
[2019-12-26] MEDS ORDERED: FOLIC ACID 11 MG/TA1 PO (16:32)
[2019-12-26] MEDS ORDERED: NEPHROCAP PO (16:32)
--- NOTE | 2019-12-26 17:12 | NUR ---
pt discharge paperwork educated on and given to pt. dc'd iv, pt dressed and belonings gathered. [employer] service called, no answer, left message.
--- NOTE | 2019-12-26 18:33 | NUR ---
LEFT ANOTHER MESSAGE FOR [employer] [facility] "[facility] GO". NO RESPONSE AT THIS TIME.
--- NOTE | 2019-12-26 20:05 | NUR ---
Discharge instructions provided by Jeannie hopper RN. Denies any further questions. Cab here to get pt at this time. Pt escorted out via wheelchair by Eunice UGALDE with all personal belongings.
== END 2019-12-26 20:05 | disposition home or self-care (01) | DRG 673 ==
LOC: MEDICAL 15:56
PROVIDERS: Nurse Practitioner; Surgery; ADMIT Internal Medicine Nephrology
PROC: 02H633Z Insertion of Infusion Device into Right Atrium, Percutaneous Approach (ICD-10-PCS; 2019-12-14)
PROC: 5A1D70Z Performance of Urinary Filtration, Intermittent, Less than 6 Hours Per Day (ICD-10-PCS; 2019-12-20)
PROC: 0JH63XZ Insertion of Tunneled Vascular Access Device into Chest Subcutaneous Tissue and Fascia, Percutaneous Approach (ICD-10-PCS; 2019-12-20)
PROC: 031C3ZF Bypass Left Radial Artery to Lower Arm Vein, Percutaneous Approach (ICD-10-PCS; principal; 2019-12-20 16:00)
DX: I12.0 Hypertensive chronic kidney disease with stage 5 chronic kidney disease or end stage renal disease (principal); N18.6 End stage renal disease; E87.2 Acidosis; E83.51 Hypocalcemia; E83.39 Other disorders of phosphorus metabolism; D63.1 Anemia in chronic kidney disease
CPT/HCPCS: J0690; J1644; J1885; J2250; J2405; J2704; J2916; J3010; J7030; P9016; Q5105; Q5106

== ENCOUNTER → 2020-02-07 | Outpatient (CLI) | payer OTHER ==
[~2020-02-07] VITALS: Ht 180.3 cm; Wt 96.9 kg
[~2020-02-07] MED LIST: B-121000 MCG PO; BENICAR5 MG PO; FOLIC ACID 11 MG/TA1 PO; MELATONIN5 M1 SL; NEPHROCAP PO; ONE-A-DAY ESSE1 EACH PO; PHOSLO667 MG PO
[2020-02-07 11:09] VITALS: BP 181/103; PULSE 92
[2020-02-07 12:00] VITALS: BP 180/100; PULSE 76
== END ==
LOC: COL.RAD 10:28
DX: Z95.828 Presence of other vascular implants and grafts (principal)